=== PATIENT | male | born 1965 | race Caucasian/White ===

== ENCOUNTER 2024-09-08 14:51 | Emergency (ER) | payer OTHER, SELFPAY ==
[2024-09-08] VITALS (7 sets, daily range): BP systolic 125–151; BP diastolic 62–85; PULSE 58–63
[2024-09-08 15:22] LABS: % Basophils 0.5 % (0-2); % Eosinophils 1.7 % (0-6); % Immature Granulocytes 0.4 % (0-0.5); % Lymphocytes 21.6 % (20.5-51.1); % Monocytes 8.5 % (1.7-9.3); % Neutrophils 67.3 % (42.2-75.2); Absolute Eosinophils 0.1 10^3/uL (0-0.7); Absolute Lymphocytes 1.6 10^3/uL (1.2-3.4); Absolute Monocytes 0.6 10^3/uL (0.1-0.6); Absolute Neutrophils 5.1 10^3/uL (1.4-6.5); Hematocrit 42.9 % (39.0-52.0); Hemoglobin 14.6 g/dL (13.0-18.0); Mean Corpuscular Hgb 29.3 pg (27.0-31.0); Mean Platelet Volume 9.4 fL (7.4-10.4); Nucleated Red Blood Cells % 0 % (-); Platelet Count 214 10^3/uL (130-400); Red Blood Cell Count 4.99 10^6/uL (4.70-6.10); Red Cell Dist. Width 13.7 % (11.5-14.5); White Blood Cell Count 7.5 10^3/uL (4.8-10.8)
[2024-09-08 15:39] LABS: ALT (SGPT) 23 U/L (0-50); AST (SGOT) 16 U/L (17-59); Albumin 4.2 g/dl (3.5-5.0); Alkaline Phosphatase 94 U/L (38-126); Blood Urea Nitrogen 12 mg/dl (9-20); Calcium 9.4 mg/dl (8.4-10.2); Carbon Dioxide 28 mmol/L (22-30); Chloride 105 mmol/L (98-107); Glucose 110 mg/dl (70-99); Potassium 4.1 mmol/L (3.5-5.1); Sodium 140 mmol/L (135-145); Total Bilirubin 0.9 mg/dl (0.2-1.3); Total Protein 6.4 g/dl (6.3-8.2); eGFR > 60.00
--- NOTE | 2024-09-08 17:25 | ED.GENMED ---
History of Present Illness
General
Chief Complaint: Fainting Sensation
Source: patient
Exam Limitations: none
Time Seen by Provider: 09/08/24 16:41
Nursing documentation reviewed up to this point in time: agreed with
History of Present Illness
History of Present Illness:
Patient is a 59-year-old male with history of aortic regurgitation s/p mechanical aortic valve replacement 2020 presenting to the emergency department following near syncopal event today. 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 He states just after finishing he went to his car and after quickly closing the door became very dizzy/lightheaded, nauseous, and felt like he was going to pass out. Symptoms did not resolve immediately so he came to
the emergency department for evaluation. Patient denies any associated chest pain, shortness of breath, back pain, headache, visual changes. He did not vomit.
By my assessment�patient states symptoms have essentially resolved.
Of note�patient does report a similar episode, although much less severe a few weeks ago after shoveling salt on his driveway.
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
Past History
Past History
ED Past Medical History: Asthma, Valvular disease () and Other (Thoracic aortic aneurysm); Negative HTN, Hypercholesterolemia or NIDDM
ED Past Surgical History: Appendectomy and Other (R Leg surgery, Throacic AA and AVR repair January at [place])
Social History
Tobacco: Former smoker
Alcohol: None
Drug: None
Personal:
Living: with family
Employment: Employed
Review of Systems
Review of Systems
Allergies reviewed?: Yes
All Other Systems: ROS reviewed and negative except as documented in HPI and ROS
Phy Exam
Physical Exam
Physical Exam:
Vitals: Patient's vital signs are stable. Afebrile
General: Patient is well appearing, no acute distress. Nontoxic appearing
Skin: Warm and dry, no rashes or lesions
Head: Normocephalic, atraumatic
Eyes: Sclera nonicteric. EOMs intact. No nystagmus.
Throat: Protecting airway
Neck: Normal ROM, no cervical spine tenderness, no meningismus. No JVD
Cardiac: Regular rate and rhythm, no murmurs.
Pulm: Normal respiratory effort, no wheezes, rales, rhonchi heard on exam.
Abdomen: Abdomen soft. No abdominal tenderness.
Extremities: No evidence of cyanosis or edema. 2+ palpable radial pulse bilaterally
Neuro: AAOx3. Grossly intact.
Psychiatric: Normal affect.
Course
Orders/Labs/Results
Orders:
Orders
09/08/24 14:53
Electrocardiogram (*1) Urgent
Reason for Study: Vertigo / Dizzy
EKG- Treatment ONCE
09/08/24 15:08
Complete Blood Count/With Diff Urgent
Comprehensive Metabolic Panel Urgent
09/08/24 17:09
0.9% Sodium Chloride 500 ml [Nss] 500 ml IV BOLUS
09/08/24 17:15
COVID-19 Antigen Urgent
Source: Nasal Swab
Prothrombin Time Urgent
Troponin I Urgent
Influenza A+B Rapid Molecular Urgent
YAJAIRA Source: Nasal Swab
Specimen Description:
09/08/24 17:40
Electrocardiogram (*1) Urgent
Reason for Study: Chest Pain
EKG- Treatment ONCE
09/08/24 18:30
Orthostatic VS- Treatment ONCE
Abnormal Lab Results
09/08/24 09/08/24
15:08 17:15
PT 27.4 H Sec
(11.4-14.6)
Glucose 110 H mg/dl
(70-99)
AST 16 L U/L
(17-59)
09/08/24 15:08
09/08/24 15:08
Vital Signs
Initial and Last Documented VS:
Initial Vital Signs
Temp Pulse Resp BP Pulse Ox
97.8 F 57 18 129/74 93
09/08/24 14:58 09/08/24 14:58 09/08/24 14:58 09/08/24 14:58 09/08/24 14:58
Last Documented Vital Signs
Temp Pulse Resp BP Pulse Ox
97.8 F 61 17 151/85 98
09/08/24 14:58 09/08/24 18:45 09/08/24 18:25 09/08/24 18:25 09/08/24 18:45
MDM/Problems Addressed
Differential Diagnosis Includes:
Not limited to: Acute dehydration, viral illness, vasovagal near syncope, orthostatic hypotension, cardiac arrhythmia, acute coronary syndrome, etc.
MDM/Problems Addressed:
59 y.o male presenting after near syncopal event associated with lightheadedness/dizziness, nausea, and diaphoresis. No preceding chest pain or shortness of breath. Patient essentially asymptomatic upon arrival to ED. Physical exam as above. Vitals
stable on arrival. Basic labs initiated in triage without clinicalyl significant abnormalities. EKG obtained in triage does show t wave inversions in anterior leads which in comparison to prior EKGs do not appear new although possible new inversion
in lead V3. Ultimately symptoms most consistent with likely vasovagal near syncope secondary to dehydration as patient had been working outsdie in heat. Do not suspect underlying central cause. Low suspicion for cardiac syncope or acute coronary
syndrome although given EKG and preceding exertional activity- will draw troponin and repeat EKG. Patient tolerating PO fluids.
Update: Troponin 0.024 which seems to be baseline for patient. EKG remains unchanged. Patient remains asymptomatic with ambulation. Case was discussed with attending physician. Feel patient stable for discharge home. He has f/u scheduled with
it help desk associate on Saturday. Advised to stay well hydrated and take it easy. Close return precautions discussed.
Chronic conditions affecting care:
Mechanical aortic valve
Acute Exacerbation and/or Progression of Chronic Illness:
N/A
*Pulse Oximetry
Patient hypoxic: no
*EKG
Interpreted by ED Provider?: Yes
EKG Intrepretation Date: 09/08/24
Interpretation: abnormal
Comparison EKG: changes noted
Heart Rate: 54
Rate: bradycardiac
Rhythm: sinus
[place]: normal axis
Interval: normal interval
Ischemia: T-wave inversion (anterior leads)
*Combination Machine Tender Interpretation
Rate: normal
Interpretation: normal
Heart Rate: 60
Rhythm: sinus
*Critical Care Note
Total Time (30-74mins, 75-104mins- exclusive of procedures): Not Applicable
ED Attending Note
-
Portions of this chart may have been created with voice recognition software.� Occasional wrong word or��sound alike� substitutions may have occurred due to the inherent limitations of voice recognition software.
Discharge Plan
Departure
Patient Disposition: Home (Routine Discharge)
Date of Disposition: 09/08/24
Time of Disposition: 18:44
Patient with high blood pressure during this ER visit?: Yes
Condition: Good
Covid-19: Negative COVID-19
Discharge Problem:
Near syncope
Instructions: Near Fainting (DC), BLOOD PRESSURE
Prescriptions:
No Action
montelukast 10 MG tablet
10 mg PO HS
Lumigan 1 DROP drops
1 drp BOTH EYES HS
atorvastatin 20 MG tablet
20 mg PO QPM
amiodarone [Pacerone] 200 MG tablet
200 mg PO DAILY
warfarin [Jantoven] 2.5 MG tablet
2.5 mg PO Q7D
Rx Instructions:
pt takes this one day a week.
lisinopril 10 MG tablet
10 mg PO DAILY
metoprolol tartrate 25 MG tablet
75 mg PO Q12H
multivitamin with folic acid [Tab-A-Mansi] 1 TABLET tablet
1 tab PO DAILY
aspirin [Children's Aspirin] 81 mg Tablet,Chewable
81 mg PO DAILY Qty: 30 0RF
warfarin 2.5 mg Tablet
3.75 mg PO DAILY
Rx Instructions:
take this dose 6/7 days a week. take 2.5 mg on the 7th day
Referrals:
Julianna Stewart CRNP [Family Provider] - Follow up in 5-7 days
Stand Alone Forms: Return to Work
Activity Restrictions/Additional Instructions:
Return to the emergency department with any chest pain, shortness of breath, dizziness/lightheadedness, episodes of fainting, worsening in current symptoms, or any other concerns
-As discussed�it is important that you follow-up with your it help desk associate on Saturday as scheduled. You may require further testing.
-You should take it easy until you are cleared by cardiology.
-It is important to stay well-hydrated. Eat a balanced diet.
Monitor your symptoms closely and return to the emergency department with any acute worsening/new symptoms or any other concerns
Interventions
Interventions:
*Risk Screen - Suicide Last Done: 09/08/24 14:58
*General Assessment Last Done: 09/08/24 14:58
*Neglect/Abuse Screening Last Done: 09/08/24 14:58
*ED- Fall Risk Assessment Last Done: 09/08/24 17:03
*ED COVID-19 Vaccine History Last Done: 09/08/24 17:03
*Nursing Disposition Last Done: 09/08/24 19:05
ED- Cardiac Assessment Last Done: 09/08/24 17:04
ED- Neurological Assessment Last Done: 09/08/24 17:04
Discharge Date and Time
Discharge Date/Time: 09/08/24 19:06
Print Language: GAMBIAN
[2024-09-08 17:48] LABS: INR 2.54; PT 27.4 Sec (11.4-14.6)
[2024-09-08 17:50] LABS: COVID-19 Antigen Negative (Negative)
[2024-09-08 17:56] LABS: Troponin I 0.024 ng/ml
== END 2024-09-08 19:06 | disposition home or self-care (01) ==
LOC: EMR 14:51
PROVIDERS: Physician Assistant; EMERGENCY PHYSICIAN Emergency Medicine; FAMILY PHYSICIAN Nurse Practitioner Primary Care
DX: R55 Syncope and collapse (principal); I35.1 Nonrheumatic aortic (valve) insufficiency; Z95.2 Presence of prosthetic heart valve; J45.909 Unspecified asthma, uncomplicated; Z87.891 Personal history of nicotine dependence; Z90.49 Acquired absence of other specified parts of digestive tract; Z11.52 Encounter for screening for COVID-19
CPT/HCPCS: 99284; 80053; 84484; 85025; 85610; 87502; 87811; 93005

== ENCOUNTER 2025-06-16 08:25 | Emergency (ER) | payer OTHER, SELFPAY ==
[2025-06-16 08:36] VITALS: BP 124/69
[2025-06-16 10:56] VITALS: BP 113/65
[2025-06-16 11:00] VITALS: BP 108/60
[2025-06-16 11:21] VITALS: BMI 26.9
[2025-06-16] MEDS: NSS 1000 IV (11:24)
--- NOTE | 2025-06-16 11:24 | ED.GENMED ---
History of Present Illness
<Nelly Cardoso PA-C - Last Filed: 06/16/25 23:44>
General
Chief Complaint: Dizziness
Source: patient
Exam Limitations: none
Time Seen by Provider: 06/16/25 11:05
Nursing documentation reviewed up to this point in time: agreed with
History of Present Illness
History of Present Illness:
Patient is a 60-year-old male with history CAD who presents to the emergency department after episode of dizziness. Patient states that approximately 1 hour prior to arrival he was seated in his truck when he experienced significant
lightheadedness, dizziness, and diaphoresis. He describes a spinning sensation as well as a sensation that he was going to pass out. He was seated at the time without any recent exertional activities. No associated chest pain, shortness of
breath. He did drive himself to the emergency department has been ambulatory with a steady gait. Symptoms have essentially resolved by this point and he only complains of a very minor headache.
Patient reports a similar episode last year without any identifiable cause.
Patient states he has been feeling well overall. No recent fever, chills, or infectious symptoms. He has been eating and drinking at his baseline. No recent exertional chest pain or shortness of breath.
Past History
<Nelly Cardoso PA-C - Last Filed: 06/16/25 23:44>
Past History
ED Past Medical History: Asthma, Valvular disease () and Other (Thoracic aortic aneurysm); Negative HTN, Hypercholesterolemia or NIDDM
ED Past Surgical History: Appendectomy and Other (R Leg surgery, Throacic AA and AVR repair January at [place])
Social History
Tobacco: Former smoker
Alcohol: None
Drug: None
Personal:
Living: with family
Employment: Employed
Review of Systems
<Nelly Cardoso PA-C - Last Filed: 06/16/25 23:44>
Review of Systems
Allergies reviewed?: Yes
All Other Systems: ROS reviewed and negative except as documented in HPI and ROS
Phy Exam
<Nelly Cardoso PA-C - Last Filed: 06/16/25 23:44>
Physical Exam
Physical Exam:
Vitals: Patient's vital signs are stable. Afebrile
General: Patient is well appearing, no acute distress
Skin: Warm and dry, no rashes or lesions
Head: Normocephalic, atraumatic
Eyes: Sclera nonicteric. EOMs intact. No nystagmus.
Throat: Protecting airway
Neck: Normal ROM, no cervical spine tenderness, no meningismus
Cardiac: Regular rate and rhythm, no murmurs.
Pulm: Normal respiratory effort. Lungs clear bilaterally
Abdomen: No abdominal tenderness.
Extremities: No evidence of cyanosis or edema. Palpable distal pulses bilateral
Neuro: AAOx3. CN II-XII grossly intact. Normal finger-nose. No focal neurologic deficits.
Psychiatric: Normal affect.
Course
<Nelly Cardoso PA-C - Last Filed: 06/16/25 23:44>
Orders/Labs/Results
Orders:
Orders
06/16/25 08:38
Electrocardiogram (*1) Urgent
Reason for Study: Vertigo / Dizzy
EKG- Treatment ONCE
06/16/25 11:18
Complete Blood Count/With Diff Urgent
Comprehensive Metabolic Panel Urgent
Lipase Urgent
Troponin I Urgent
06/16/25 11:23
0.9% Sodium Chloride 1000 ml [Nss] 1,000 ml IV BOLUS
06/16/25 11:53
COVID-19 Antigen Urgent
Source: Nasal Swab
Influenza A+B Rapid Molecular Urgent
YAJAIRA Source: Nasal Swab
Specimen Description:
06/16/25 12:32
CT Head W/o Iv Contrast Urgent
Comment:
Reason For Exam: [place] on coumadin
06/16/25 12:36
Prothrombin Time Urgent
Abnormal Lab Results
06/16/25 06/16/25
11:18 12:36
WBC 13.2 H 10^3/uL
(4.8-10.8)
Abs Immat Gran (auto) 0.1 H 10^3/uL
(0-0.05)
Absolute Neuts (auto) 11.6 H 10^3/uL
(1.4-6.5)
Absolute Lymphs (auto) 1.0 L 10^3/uL
(1.2-3.4)
Neutrophils % 87.9 H %
(42.2-75.2)
Lymphocytes % 7.6 L %
(20.5-51.1)
PT 27.6 H Sec
(11.4-14.6)
Carbon Dioxide 33 H mmol/L
(22-30)
Glucose 102 H mg/dl
(70-99)
06/16/25 11:18
06/16/25 11:18
Vital Signs
Initial and Last Documented VS:
Initial Vital Signs
Temp Pulse Resp BP Pulse Ox
98.2 F 50 16 124/69 98
06/16/25 08:36 06/16/25 08:36 06/16/25 08:36 06/16/25 08:36 06/16/25 08:36
Last Documented Vital Signs
Temp Pulse Resp BP Pulse Ox
98.2 F 59 18 108/60 95
06/16/25 08:36 06/16/25 11:30 06/16/25 11:15 06/16/25 11:00 06/16/25 11:30
<Michael Ramachandran MD - Last Filed: 06/16/25 13:28>
Orders/Labs/Results
Orders:
Orders
06/16/25 08:38
Electrocardiogram (*1) Urgent
Reason for Study: Vertigo / Dizzy
EKG- Treatment ONCE
06/16/25 11:18
Complete Blood Count/With Diff Urgent
Comprehensive Metabolic Panel Urgent
Lipase Urgent
Troponin I Urgent
06/16/25 11:23
0.9% Sodium Chloride 1000 ml [Nss] 1,000 ml IV BOLUS
06/16/25 11:53
COVID-19 Antigen Urgent
Source: Nasal Swab
Influenza A+B Rapid Molecular Urgent
YAJAIRA Source: Nasal Swab
Specimen Description:
06/16/25 12:32
CT Head W/o Iv Contrast Urgent
Comment:
Reason For Exam: [place] on coumadin
06/16/25 12:36
Prothrombin Time Urgent
Abnormal Lab Results
06/16/25 06/16/25
11:18 12:36
WBC 13.2 H 10^3/uL
(4.8-10.8)
Abs Immat Gran (auto) 0.1 H 10^3/uL
(0-0.05)
Absolute Neuts (auto) 11.6 H 10^3/uL
(1.4-6.5)
Absolute Lymphs (auto) 1.0 L 10^3/uL
(1.2-3.4)
Neutrophils % 87.9 H %
(42.2-75.2)
Lymphocytes % 7.6 L %
(20.5-51.1)
PT 27.6 H Sec
(11.4-14.6)
Carbon Dioxide 33 H mmol/L
(22-30)
Glucose 102 H mg/dl
(70-99)
06/16/25 11:18
06/16/25 11:18
Vital Signs
Initial and Last Documented VS:
Initial Vital Signs
Temp Pulse Resp BP Pulse Ox
98.2 F 50 16 124/69 98
06/16/25 08:36 06/16/25 08:36 06/16/25 08:36 06/16/25 08:36 06/16/25 08:36
Last Documented Vital Signs
Temp Pulse Resp BP Pulse Ox
98.2 F 59 18 108/60 95
06/16/25 08:36 06/16/25 11:30 06/16/25 11:15 06/16/25 11:00 06/16/25 11:30
<Nelly Cardoso PA-C - Last Filed: 06/16/25 23:44>
MDM/Problems Addressed
Differential Diagnosis Includes:
Not limited to: Acute dehydration, viral illness, peripheral vertigo, near syncope, cardiac arrhythmia, etc.
MDM/Problems Addressed:
60-year-old male with history of mechanical heart valve on coumadin presenting after episode of transient vertigo earlier today at work. History of similar symptoms approximately one year ago. Symptoms resolved by arrival ED.
Patient has stable vital signs. On exam he is well appearing in no distress. Cardiac/pulmonary assessment unremarkable. He is alert & oriented without any focal deficits. Normal cerebellar exam. No nystagmus.
Differential broad. He seems to be describing a very transient episode of vertigo. Does not seem consistent with near syncope. Doubt primary cardiac problem or central process.
Given headache on Coumadin a head CT was obtained, which shows no acute moralities. Lab work sent with mild leukocytosis however no other acute findings. Troponin negative. INR in therapeutic range. Viral studies negative.
Patient is ambulating without difficulty in department with steady gait. Suspect episode of peripheral vertigo however given benign exam, complete resolution symptoms, and negative work up - feel stable for discharge home with outpatient follow-up.
Advised to continue medication as prescribed and discussed area return precautions.
Chronic conditions affecting care:
CAD, mechanical valve on Coumadin
Acute Exacerbation and/or Progression of Chronic Illness:
N/A
<Nelly Cardoso PA-C - Last Filed: 06/16/25 23:44>
*Radiology
Radiology exam reviewed: radiology read reviewed
*Pulse Oximetry
SaO2: 98
Oxygen Mode of Delivery: Room air
Patient hypoxic: no
*EKG
Interpreted by ED Provider?: Yes
EKG Intrepretation Date: 06/16/25
Interpretation: abnormal
Comparison EKG: no changes
Heart Rate: 51
Rate: normal
Rhythm: sinus
[place]: normal axis
Interval: normal QT interval
QRS Pattern: normal QRS
Ischemia: T-wave inversion (T wave inversions in anterior leads)
*General Ophthalmologist Interpretation
Rate: normal
Interpretation: normal
Heart Rate: 50
Rhythm: sinus
*Critical Care Note
Total Time (30-74mins, 75-104mins- exclusive of procedures): Not Applicable
<Nelly Cardoso PA-C - Last Filed: 06/16/25 23:44>
Patient Management
Discussion with other providers: Certified Court/Medical Interpreter (Case discussed with attending ED physician)
ED Attending Note
<Nelly Cardoso PA-C - Last Filed: 06/16/25 23:44>
-
Portions of this chart may have been created with voice recognition software.� Occasional wrong word or��sound alike� substitutions may have occurred due to the inherent limitations of voice recognition software.
<Michael Ramachandran MD - Last Filed: 06/16/25 13:28>
ED Attending Note
Patient seen and examined by attending physician: Yes
I performed the substantive portion of visit, reviewed & personally made and approve the management plan that is documented in note by myself or GODFREY.: Yes
ED Attending Note:
60-year-old male presents with sudden onset of vertigo diaphoresis at work. Was not a syncopal feeling or syncopal episode. Symptoms lasted a relatively brief period of time. Currently feels fine. Mild headache has persisted. No other
neurologic symptoms. Remote history of same.
On exam patient is nontoxic in no distress.
Heart regular rate and rhythm with mechanical valve murmur.
Lungs clear and equal
Chronic mild weakness to the right arm and leg which is old. Otherwise nonfocal exam.
No unusual rotatory bidirectional or vertical nystagmus.
Lab results show a mild leukocytosis. All other labs stable. EKG stable.
Patient describing a transient true vertigo episode. His exam is totally benign now. Low suspicion for central etiology. We will CT his head because of his anticoagulation. Not describing a primary cardiac issue. Not describing syncope. If all
testing is negative and patient ambulates well he may be discharged to follow-up
Discharge Plan
Departure
Patient Disposition: Home (Routine Discharge)
Date of Disposition: 06/16/25
Time of Disposition: 13:58
Patient with high blood pressure during this ER visit?: No
Condition: Good
Covid-19: Negative COVID-19
Discharge Problem:
Dizziness
Instructions: Dizziness
Prescriptions:
No Action
montelukast 10 MG tablet
10 mg PO HS
[place] 1 DROP drops
1 drp BOTH EYES HS
atorvastatin 20 MG tablet
20 mg PO QPM
amiodarone [Pacerone] 200 MG tablet
200 mg PO DAILY
warfarin [Jantoven] 2.5 MG tablet
2.5 mg PO Q7D
Rx Instructions:
pt takes this one day a week.
lisinopril 10 MG tablet
10 mg PO DAILY
metoprolol tartrate 25 MG tablet
75 mg PO Q12H
multivitamin with folic acid [Tab-A-Mansi] 1 TABLET tablet
1 tab PO DAILY
aspirin [Children's Aspirin] 81 mg Tablet,Chewable
81 mg PO DAILY Qty: 30 0RF
warfarin 2.5 mg Tablet
3.75 mg PO DAILY
Rx Instructions:
take this dose 6/7 days a week. take 2.5 mg on the 7th day
Referrals:
Aron Pena MD [Family Provider, Internal Medicine] - Follow up in 5-7 days
Stand Alone Forms: Return to Work
Activity Restrictions/Additional Instructions:
RETURN TO THE EMERGENCY DEPARTMENT ANY FEVER, CHEST PAIN OR SHORTNESS OF BREATH, PERSISTENT LIGHTHEADEDNESS/DIZZINESS, SEVERE HEADACHE, AMBULATORY DYSFUNCTION, WORSENING CURRENT SYMPTOMS, OR ANY OTHER CONCERNS
- As discussed�we are unclear the exact cause of your symptoms today. Your white blood cell count was mildly elevated. Please ensure that this comes down with repeat lab work with your primary care provider. Otherwise, your lab work showed no
acute abnormalities. Your viral studies and cardiac enzymes were negative. Your head CT showed no acute findings.
- Please stay well-hydrated. Continue to take all your medications as prescribed.
- Follow-up with primary care for further evaluation and/or management as needed
Monitor your symptoms closely and return to the emergency department with any acute worsening/new symptoms or any other concerns
Interventions
Interventions:
*Risk Screen - Suicide Last Done: 06/16/25 08:36
*General Assessment Last Done: 06/16/25 08:36
*Neglect/Abuse Screening Last Done: 06/16/25 08:36
*ED COVID-19 Vaccine History Last Done: 06/16/25 08:36
*ED Influenza Vaccine History Last Done: 06/16/25 08:36
[facility] Fall Risk Assessment Tool Last Done: 06/16/25 11:21
*Nursing Disposition Last Done: 06/16/25 14:27
ED- Neurological Assessment Last Done: 06/16/25 11:21
ED- Cardiac Assessment Last Done: 06/16/25 14:27
ED Swallowing Screen Last Done: 06/16/25 11:21
Discharge Date and Time
Discharge Date/Time: 06/16/25 14:27
Print Language: ITALIAN
[2025-06-16 11:42] LABS: Hematocrit 46.1 % (39.0-52.0); Hemoglobin 15.8 g/dL (13.0-18.0); Mean Corp Hgb Conc. 34.3 g/dL (33.0-37.0); Mean Corpuscular Volume 85.2 fL (80.0-94.0); Nucleated Red Blood Cells % 0 % (-); Platelet Count 179 10^3/uL (130-400); Red Cell Dist. Width 13.2 % (11.5-14.5)
[2025-06-16 11:54] LABS: ALT (SGPT) 31 U/L (0-50); AST (SGOT) 20 U/L (17-59); Albumin 4.2 g/dl (3.5-5.0); Alkaline Phosphatase 87 U/L (38-126); Blood Urea Nitrogen 15 mg/dl (9-20); Calcium 9.5 mg/dl (8.4-10.2); Carbon Dioxide 33 mmol/L (22-30); Chloride 106 mmol/L (98-107); Estimated Creatinine Clearance 75 ml/min; Glucose 102 mg/dl (70-99); Lipase 103 U/L (23-300); Potassium 4.6 mmol/L (3.5-5.1); Sodium 139 mmol/L (135-145); Total Protein 7.0 g/dl (6.3-8.2); eGFR > 60.00
[2025-06-16 12:03] LABS: Troponin I 0.018 ng/ml
[2025-06-16 12:34] LABS: COVID-19 Antigen Negative (Negative)
[2025-06-16 13:05] LABS: INR 2.62; PT 27.6 Sec (11.4-14.6)
== END 2025-06-16 14:27 | disposition home or self-care (01) ==
LOC: EMR 08:25
PROVIDERS: Emergency Medicine; Physician Assistant; EMERGENCY PHYSICIAN Emergency Medicine; FAMILY PHYSICIAN Internal Medicine Geriatric Medicine
DX: R42 Dizziness and giddiness (principal); I25.10 Atherosclerotic heart disease of native coronary artery without angina pectoris; J45.909 Unspecified asthma, uncomplicated; Z90.49 Acquired absence of other specified parts of digestive tract; Z95.2 Presence of prosthetic heart valve; Z87.891 Personal history of nicotine dependence; Z79.01 Long term (current) use of anticoagulants
CPT/HCPCS: 96360; 99284; 70450; 80053; 83690; 84484; 85025; 85610; 87502; 87811; 93005